=== PATIENT | female | born 1990 | race Caucasian/White ===

== ENCOUNTER → 2021-07-21 09:50 | Outpatient (BNVA) | payer OTHER, SELFPAY | PROVIDERS: Family Provider Family Medicine; Visit Provider Family Medicine | DX: Z20.822 Contact with and (suspected) exposure to COVID-19 (principal); Z20.828 Contact with and (suspected) exposure to other viral communicable diseases | CPT/HCPCS: 87426; 87635 ==

== ENCOUNTER 2021-10-31 19:54 | Emergency (ER) | payer OTHER, SELFPAY ==
[2021-10-31 20:01] VITALS: BP 132/84; PULSE 99; RESP 16; TEMP 36.6; O2SAT 99; BMI 32.9
--- NOTE | 2021-10-31 21:01 | ED_ITS ---
HPI - Abdominal Pain General: Chief Complaint: Abdominal Pain Stated Complaint: PT thinks gallbladder Time Seen by Provider: 10/31/21 20:13 History of Present Illness: 31-year-old female comes in today with complaints of epigastric discomfort going through to her back. Patient reports some gastric discomfort since Albino with some loose stools. Patient denies any vomiting. Patient reports a history of acidic stomach . Patient has had 3 pregnancies with 2 live births. Patient has had a tubal ligation. Patient had umbilical hernia repair. Patient reports no fever. Patient reports no difficulty urinating or any abnormal vaginal discharge. Patient is presently on her menstrual cycle. MD elicited complaint: abdominal pain Pertinent past history: none Pain Consistency: intermittent Location: Epigastric Severity: moderate Exacerbating factors: nothing Associated Symptoms: Reports chills, diarrhea and nausea; Denies fever(s) Review of Systems General: Reports: 10 or more systems reviewed and unremarkable except in HPI and below Const: Reports: chills and malaise; Denies: fever(s) GI: Reports: abdominal pain, nausea and diarrhea [facility] PFSH: Medical History (Updated 10/31/21 @ 22:54 by MARLYS Zhong) Pain, dental Tooth abscess Physical Exam Const: COMMON NORMALS: alert HENMT: MOUTH: Normal oral and palatal mucosa present THROAT: posterior oropharynx normal Neck/C-Spine: COMMON NORMALS: full ROM Resp: COMMON NORMALS: normal respiratory effort and clear to auscultation bilaterally AUSCULTATION: clear to auscultation bilaterally Cardio: COMMON NORMALS: regular rate and regular rhythm RATE: regular rate RHYTHM: regular rhythm GI: COMMON NORMALS: Soft to palpation AUSCULTATION: Yes normoactive bowel s ounds PALPATION: Yes Soft to palpation and Yes Tenderness to palpation pr esent (GI) Details: RUQ : COMMON NORMALS: Yes no CVA tenderness BLADDER/KIDNEY EXAM: Yes no CVA tenderness Back/Pelvis: COMMON NORMALS: no CVA tenderness Extremity: COMMON NORMALS: normal to inspection and no pedal edema Neuro: SENSORIUM/ORIENTATION: Yes alert Psych: COMMON NORMALS: cooperative Skin: COMMON NORMALS: no rashes or lesions noted GENERAL SKIN EXAM: no rashes or lesions noted Course Vital Signs: Vital signs: Vital Signs Temperature 97.9 F 10/31/21 20:01 Pulse Rate 90 10/31/21 21:26 Respiratory Rate 16 10/31/21 21:26 Blood Pressure 140/80 10/31/21 21:26 Pulse Oximetry 99 10/31/21 21:26 MDM - Abdominal Pain Medical Decision Making 31-year-old female comes in today with epigastric pain radiating to her back. On exam patient has abdominal tenderness in epigastric and right upper quadrant. Bowel sounds are present. Skin is warm and dry. Vital signs are normal. Differential diagnosis includes but not limited to cholecystitis, pancreatitis, gastritis. CBC CMP are unremarkable. Lipase was 1000. Urinalysis was clear. Concern for pancreatitis due to elevation of lipase. CT of the abdomen and pelvis indicated no significant abnormality in the pancreas or other abdominal structures. I believe patient probably has idiopathic pancreatitis recommended clear liquid diet and the use of hydrocodone and Zofran for nausea and pain control. Patient was strongly recommended to avoid rich foods and an increase diet as tolerated after pain is resolved. Patient should follow-up with primary care for further instruction. Patient reported understanding and agreed to isma mullins. Lab Data : 10/31/21 20:57 10/31/21 20:57 Labs/Radiology: Radiology Impressions Abdomen/Pelvis CT 10/31/21 21:36 IMPRESSION: 1. No cause for acute pain is identified. Pancreas is normal. 2. Fat containing umbilical hernia. COMMENTS: Consistent with the [employer]'s Incidental Findings Committee white paper (J Am Shiv Radiol 2018): Any incidental renal lesion less than 1 cm or classified as too small to characterize, or any incidental cystic renal lesion characterized as simple-appearing, is likely benign. No follow-up imaging is recommended for these lesions per consensus recommendations based on imaging criteria. Laboratory Results WBC 7.7 10^3/uL (4.0-10.0) 10/31/21 20:57 RBC 4.84 10^6/uL (4.1-5.3) 10/31/21 20:57 Hgb 13.7 g/dL (11.5-15.3) 10/31/21 20:57 Hct 42.6 % (37.0-47.0) 10/31/21 20:57 MCV 88.0 fl (81-99) 10/31/21 20:57 MCH 28.3 pg (28.0-34.0) 10/31/21 20:57 MCHC 32.2 g/dL (30.0-36.0) 10/31/21 20:57 RDW 13.7 % (12.1-15.1) 10/31/21 20:57 Plt Count 162 10^3/cmm (130-400) 10/31/21 20:57 MPV 11.8 fL (7.4-10.4) H 10/31/21 20:57 Neut % (Auto) 68.3 % 10/31/21 20:57 Lymph % (Auto) 21.0 % 10/31/21 20:57 [place] % (Auto) 8.7 % 10/31/21 20:57 Eos % (Auto) 1.3 % 10/31/21 20:57 Baso % (Auto) 0.4 % 10/31/21 20:57 Neut # (Auto) 5.26 10^3/uL (1.8-7.7) 10/31/21 20:57 Lymph # (Auto) 1.6 10^3/uL (0.8-4.8) 10/31/21 20:57 [place] # (Auto) 0.7 10^3/uL (0.2-0.9) 10/31/21 20:57 Eos # (Auto) 0.1 10^3/uL (0.0-0.8) 10/31/21 20:57 Baso # (Auto) 0.0 10^3/uL (0.0-0.1) 10/31/21 20:57 Nucleated RBC % (auto) 0 % 10/31/21 20:57 Nucleated RBCs # 0.0 /100WBC 10/31/21 20:57 Sodium 140 mmol/L (136-145) 10/31/21 20:57 Potassium 3.6 mmol/L (3.5-5.1) 10/31/21 20:57 Chloride 104 mmol/L (98-107) 10/31/21 20:57 Carbon Dioxide 23 mmol/L (22-29) 10/31/21 20:57 Anion Gap 16.6 (5-19) 10/31/21 20:57 BUN 10 mg/dL (6-20) 10/31/21 20:57 Creatinine 0.8 mg/dL (0.5-0.9) 10/31/21 20:57 GFR Calculation 82.6 mL/min (90-130) L 10/31/21 20:57 Glucose 108 mg/dL (65-115) 10/31/21 20:57 Calculated Osmolality 290 mOsm/kg (285-295) 10/31/21 20:57 Calcium 9.3 mg/dL (8.5-10.5) 10/31/21 20:57 Total Bilirubin 0.3 mg/dL (0.15-1.2) 10/31/21 20:57 AST 12 U/L (0-32) 10/31/21 20:57 ALT 18 U/L (0-33) 10/31/21 20:57 Alkaline Phosphatase 86 IU/L (35-105) 10/31/21 20:57 Total Protein 6.9 g/dL (6.6-8.7) 10/31/21 20:57 Albumin 4.0 g/dL (3.5-5.2) 10/31/21 20:57 Globulin 2.9 g/dL (1.3-4.6) 10/31/21 20:57 Lipase 1079 U/L (13-60) H 10/31/21 20:57 HCG, Qual Negative (Negative) 10/31/21 20:57 Urine Color Yellow (Yellow) 10/31/21 21:30 Urine Appearance Clear (CLEAR) 10/31/21 21:30 Urine pH 5 (5-7) 10/31/21 21:30 Ur Specific [place] 1.020 (1.005-1.030) 10/31/21 21:30 Urine Protein Neg (Negative) 10/31/21 21:30 Urine Glucose (UA) Norm (Normal) 10/31/21 21:30 Urine Ketones Negative (Negative) 10/31/21 21:30 Urine Blood Trace (Negative) H 10/31/21 21:30 Urine Nitrate Negative (Negative) 10/31/21 21:30 Urine Bilirubin Neg (Negative) 10/31/21 21:30 Urine Urobilinogen Norm mg/dL (Negative) 10/31/21 21:30 Ur Leukocyte Esterase Negative (Negative) 10/31/21 21:30 Urine RBC 0-4 /hpf (0-2) H 10/31/21 21:30 Urine WBC 0-4 /hpf (0-5) H 10/31/21 21:30 Ur Squamous Epith Cells 0-4 /hpf (0-5) H 10/31/21 21:30 Amorphous Sediment Not Reportable 10/31/21 21:30 Urine Bacteria Trace /hpf (NONE) 10/31/21 21:30 Urine Mucus Trace /hpf 10/31/21 21:30 Discharge Plan Discharge Patient Disposition: Home Clinical Impression: Pancreatitis Qualifiers: Chronicity: acute Pancreatitis type: idiopathic Acute pancreatitis complication: no infection or necrosis Qualified Code(s): K85.00 - Idiopathic acute pancreatitis without necrosis or infection Condition: Stable Prescriptions: New hydrocodone-acetaminophen 5-325 mg tablet 1 tab PO Q8H PRN (Reason: pain) Qty: 7 0RF ondansetron 4 mg tablet,disintegrating 4 mg PO Q8H PRN (Reason: nausea and vomiting) Qty: 7 0RF No Action amoxicillin 875 mg tablet 875 mg PO BID Qty: 20 1RF Discharge Orders: Discharge ED (Routine); Ordered 10/31/21 Ordered By: Luisito Ny Referrals: Ernesto Agudelo MD [Primary Care Provider] - Discharge Diet: Clear Liquid Discharge Activity: Increase activity as tolerated Patient Instructions: Pancreatitis (ED), Opioid Safety Activity Restrictions/Additional Instructions: Home and rest. Drink plenty of fluids. Use Zofran and hydrocodone for pain and nausea. You may also use acetaminophen or ibuprofen to help control pain. Follow-up with primary care in 3 days for recheck. Return to ER for worsening symptoms such as inability to hold fluids down, uncontrolled pain, or high fever greater than 100.3. Coding Level of Care Code ED Naturopathic Physician for Kathryn Fwd Exam Comprehensive
[2021-10-31 21:03] LABS: Basophils % 0.4 %; Eosinophils # 0.1 10^3/uL (0.0-0.8); Eosinophils % 1.3 %; Hematocrit 42.6 % (37.0-47.0); Hemoglobin 13.7 g/dL (11.5-15.3); Lymphocytes # 1.6 10^3/uL (0.8-4.8); Mean Corpuscular HGB Conc 32.2 g/dL (30.0-36.0); Mean Corpuscular Hemoglobin 28.3 pg (28.0-34.0); Mean Platelet Volume 11.8 fL (7.4-10.4); Monocytes # 0.7 10^3/uL (0.2-0.9); Monocytes % 8.7 %; Neutrophils # 5.26 10^3/uL (1.8-7.7); Neutrophils % 68.3 %; Nucleated Red Blood Cells % 0 %; Platelet Count 162 10^3/cmm (130-400); Red Blood Count 4.84 10^6/uL (4.1-5.3); Red Cell Distribution Width 13.7 % (12.1-15.1); White Blood Count 7.7 10^3/uL (4.0-10.0)
[2021-10-31 21:23] LABS: Alanine Aminotransferase 18 U/L (0-33); Alkaline Phosphatase 86 IU/L (35-105); Anion Gap 16.6 (5-19); Aspartate Amino Transferase 12 U/L (0-32); Blood Urea Nitrogen 10 mg/dL (6-20); Calcium 9.3 mg/dL (8.5-10.5); Carbon Dioxide 23 mmol/L (22-29); Chloride 104 mmol/L (98-107); Globulin 2.9 g/dL (1.3-4.6); Glomerular Filtration Rate 82.6 mL/min (90-130); Glucose 108 mg/dL (65-115); Osmolality Calculated 290 mOsm/kg (285-295); Potassium 3.6 mmol/L (3.5-5.1); Sodium 140 mmol/L (136-145); Total Bilirubin 0.3 mg/dL (0.15-1.2); Total Protein 6.9 g/dL (6.6-8.7)
[2021-10-31 21:26] VITALS: BP 140/80; PULSE 90; RESP 16; O2SAT 99
[2021-10-31 21:27] LABS: HCG, Serum Qual Negative (Negative)
[2021-10-31 21:33] LABS: Lipase 1079 U/L (13-60)
--- NOTE | 2021-10-31 21:36 | CTR_ITS ---
PROCEDURE INFORMATION: Exam: CT Abdomen And Pelvis With Contrast Exam date and time: 10/31/2021 9:36 PM Age: 31 years old Clinical indication: Abdominal pain; Patient HX: Epigastric pain/ elevated lipase; Additional info: Elvated lipase TECHNIQUE: Imaging protocol: Computed tomography of the abdomen and pelvis with contrast. Radiation optimization: All CT scans at this facility use at least one of these dose optimization techniques: automated exposure control; mA and/or kV adjustment per patient size (includes targeted exams where dose is matched to clinical indication); or iterative reconstruction. Contrast material: OMNI 300; Contrast volume: 95 ml; Contrast route: INTRAVENOUS (IV); COMPARISON: ES Gynecology Scope Images 02/18/2015 3:40 AM RADIATION DOSE METRICS: Total DLP (mGy-cm): 1743.62 FINDINGS: Lungs: The lung bases are clear. No effusion Liver: Normal. No mass. Gallbladder and bile ducts: No wall thickening, pericholecystic fluid or stones. Pancreas: Normal. No ductal dilation. Spleen: Normal. No splenomegaly. Adrenal glands: Normal. No mass. Kidneys and ureters: There is a subcentimeter low-attenuation lesion/lesions, of the left kidney which are too small to accurately characterize by CT. Stomach and bowel: Unremarkable. No obstruction. No mucosal thickening. Appendix: No evidence of appendicitis. Intraperitoneal space: Unremarkable. No free air. No significant fluid collection. Vasculature: Unremarkable. No abdominal aortic aneurysm. Lymph nodes: In multiple borderline enlarged mesenteric lymph nodes which are likely reactive in nature. Urinary bladder: Unremarkable as visualized. Reproductive: Unremarkable as visualized. Bones/joints: Unremarkable. No acute fracture. Soft tissues: Fat containing umbilical hernia. CT/CT abdomen pelvis w con* [id number] IMPRESSION: 1. No cause for acute pain is identified. Pancreas is normal. 2. Fat containing umbilical hernia. COMMENTS: Consistent with the [employer]'s Incidental Findings Committee white paper (J Am Shiv Radiol 2018): Any incidental renal lesion less than 1 cm or classified as too small to characterize, or any incidental cystic renal lesion characterized as simple-appearing, is likely benign. No follow-up imaging is recommended for these lesions per consensus recommendations based on imaging criteria.
[2021-10-31] MEDS: iohexol 300 mg/mL 100 mL Btl IV (21:50)
[2021-10-31 21:53] LABS: Add Urine Culture? No; Add Urine Microscopic? YES; Bacteria Urine TRACE /hpf; Bilirubin Urine Neg (Negative); Blood Urine Trace (Negative); Glucose Urine UA Norm (Normal); Ketones Urine Negative (Negative); Leukocyte Esterase Urine Negative (Negative); Mucus Urine TRACE /hpf; Nitrate Urine Negative (Negative); Protein Urine Neg (Negative); RBC Urine 0-4 /hpf (0-2); Squamous Epithelial Cell Urine 0-4 /hpf (0-5); Urine Appearance Clear (CLEAR); Urine Color Yellow (Yellow); Urobilinogen Urine Norm (Negative); WBC Urine 0-4 /hpf (0-5); pH Urine 5 (5-7)
[2021-10-31] MEDS: ondansetron 4 MG Tablet 8 MG PO (23:00)
[2021-10-31] MEDS: HYDROcodone-acetaminophen 5-325 mg Tablet 2 TAB PO (23:00)
[2021-10-31 23:17] LABS: Triglycerides 251 mg/dL (0-150)
== END 2021-10-31 23:04 | disposition home or self-care (01) ==
PROVIDERS: Emergency Provider Nurse Practitioner Family; PCP Family Medicine
DX: K85.00 Idiopathic acute pancreatitis without necrosis or infection (principal)
CPT/HCPCS: 36415; 74177; 80053; 81001; 83690; 84478; 84703; 85025; 99283; Q0162; Q9967

== ENCOUNTER → 2023-02-22 09:55 | Outpatient (BNVA) | payer OTHER, SELFPAY | PROVIDERS: PCP Family Medicine; Visit Provider Family Medicine | DX: R10.9 Unspecified abdominal pain (principal); K42.9 Umbilical hernia without obstruction or gangrene | CPT/HCPCS: 80053; 80061; 83690; 85025 ==

== ENCOUNTER 2023-04-19 09:05 | Day surgery (SDC) | payer OTHER, SELFPAY ==
[2023-04-18 09:42] VITALS: BMI 51.4
[2023-04-19] VITALS (19 sets, daily range): BP systolic 133–164; BP diastolic 70–107; PULSE 59–95; RESP 14–22; TEMP 36.2–36.6; O2SAT 90–97
--- NOTE | 2023-04-19 09:22 | W.PM.OPSUD ---
Surgery/Procedure H&P Update DATE OF PROCEDURE: April 19, 2023 DATE H&P PERFORMED: 03/20/23 H&P UPDATE INFORMATION: I have reviewed H&P completed within last 30 days, I have examined patient prior to procedure and No changes to prior documentation PLANNED PROCEDURE: Operation Date: 04/19/23 10:40 Proposed Procedures p lap repair of recurrent umbilical hernia w/ mesh [id number], K42.9(Not Applicable) - Shawn Bourgeois DO
[2023-04-19 09:43] LABS: OR HCG Qualitative Urine Negative (Negative)
[2023-04-19] MEDS: sodium chloride 0.9% 1,000 ML 30 ML IV (09:53)
--- NOTE | 2023-04-19 10:00 | ANES.PREANE2 ---
Pre-Anesthetic Assessment Height/Weight: Height 1.65 m Weight 140.16 kg Temp Pulse Resp BP Pulse Ox O2 Del Method 97.1 F L 84 16 133/82 97 Room Air 04/19/23 09:32 04/19/23 09:32 04/19/23 09:32 04/19/23 09:32 04/19/23 09:32 04/19/23 09:32 Operation Date: 04/19/23 10:40 Proposed Procedures p lap repair of recurrent umbilical hernia w/ mesh [id number], K42.9(Not Applicable) - Shawn Bourgeois DO Familial anesthetic complications: none Was Beta Diony taken within 24 hours: Yes Was Clonidine taken within 24 hours: N/A Last intake: Intake Last Liquid Date 04/19/23 Last Liquid Time 02:30 Last Solid Date 04/18/23 Last Solid Time 21:00 Social No alcohol and No tobacco (h/o smoking) Exam alert, oriented x 3, clear to auscultation bilaterally and regular rate & rhythm Airway Submandibular: within normal limits Cervical ROM: within normal limits Mallampati: Class II Dentition: full CV/HEM Arrythmia Metabolic Morbid Obesity Neuropsych Anxiety Anesthetic Plan ASA status: 3 Anesthesia: General Medications/Allergies Home Medications Medication Instructions Recorded Confirmed Last Taken Type mupirocin 2 % topical ointment 1 applic topical BID #22 grams 02/01/22 04/18/23 Unknown Rx escitalopram oxalate 20 mg tablet 20 mg PO DAILY #30 tabs 02/22/23 04/18/23 04/18/23 21:00 Rx (Lexapro) propranolol 10 mg tablet 10 mg PO BID #60 tabs 02/23/23 04/18/23 04/18/23 21:00 Rx fluconazole 150 mg tablet 150 mg PO Q3D 2 doses #2 tabs 04/13/23 04/18/23 Unknown Rx (Diflucan) Allergies Allergy/AdvReac Type Severity Reaction Status Date / Time metronidazole [From Flagyl] Allergy Unknown Verified 04/13/23 16:42 sumatriptan [From Imitrex] Allergy ALGY-Joint Verified 04/18/23 09:41 Pain Current Medications Generic Name Dose Route Start Last Admin Trade Name Freq PRN Reason Stop Dose Admin Sodium Chloride 1,000 mls @ 30 mls/hr 04/19/23 09:30 04/19/23 09:53 Sodium Chloride 0.9% IV 04/20/23 09:29 30 mls/hr .Q24H JENNIE Administration PFSH Anesthesia Medical History Pain, dental Tooth abscess Surgical History Hx of tubal ligation Hx of umbilical hernia repair Social History Smoking and tobacco status: never smoked Alcohol intake: current Alcohol intake frequency: holidays/special occasions only Marital status: Current occupational status: employed Female Reproductive History Date of last menstrual period: 02/05/23 Data Anesthesia Cardiac Studies: Holter Monitor 10/10/21
[2023-04-19] MEDS: ceFAZolin 2,000 MG in sodium chloride 0.9% (plus) 50 ML 100 MG IV (10:15)
[2023-04-19] MEDS: ceFAZolin 1,000 MG in sodium chloride 0.9% (plus) 50 ML 100 MG IV (10:30)
--- NOTE | 2023-04-19 11:02 | PM.OP ---
Operative Report Date of procedure: April 19, 2023 Pre-op diagnosis: Recurrent incisional hernia Post-op diagnosis: same Procedure done: Laparoscopic repair of recurrent incisional hernia with mesh Implants: 11 cm round Ventralight mesh Specimens removed/disposition: None Surgeon: Dr. Shawn Bourgeois DO Anesthesia: General Estimated blood loss (mL): 5 Complications: None apparent Brief History: This very pleasant 33-year-old female who presents my office with a recurrent incisional hernia at the umbilicus. Laparoscopic repair with mesh was indicated. The risk and benefits were explained and documented. Hernia was reducible and preoperatively measured 1.5 cm in diameter. Procedure: Patient was wheeled into the operative room and placed on the OR table in a supine position. Abdomen was inspected prepped and draped in usual sterile fashion. Time-out was performed and all present were in agreement. A 15 blade scalp was used to make a 5 millimeter incision left upper quadrant. A Veress needle was placed into the incision and intra-abdominal insufflation was brought to 15 millimeters of mercury. A 12 millimeter trocar was placed into the left lower quadrant. The energy but device was then used to cut out the hernia sac. The hernia defect measured 1.5 cm in diameter. An 11 cm ventral light mesh was placed into the abdomen and brought up through the umbilicus using an the Ulises-Antonietta. The mesh was then tacked in place in a double crown fashion. The skeleton of the mesh was removed via the left lower quadrant. The hernia sac was then removed from the abdomen via the left lower quadrant. The hernia sac was not sent to pathology.. The left lower quadrant port site was closed with an 0 Vicryl suture in a Ulises-Antonietta in a [id number] fashion. Incisions were closed with 4 O Vicryl in a subcuticular interrupted fashion. Skin glue was applied. A dressing that included cotton balls and a Tegaderm was placed over the umbilicus. Patient tolerated the procedure well.
[2023-04-19] MEDS: lidocaine-epi 2% 20 mL INJ 3 ML INJECTION (11:04)
[2023-04-19] MEDS: fentaNYL 50 mcg/mL INJ 2mL IVP ×2 (11:31→11:52)
[2023-04-19] MEDS: HYDROcodone-acetaminophen 10-325 mg Tablet 1 TAB PO (13:30)
--- NOTE | 2023-04-19 13:42 | ANE.PACU2 ---
Inpatient post-anesthesia follow up: Airway intact: Yes Vital signs: Temperature 97.6 F Pulse Rate 78 Respiratory Rate 16 Blood Pressure 150/80 Pulse Oximetry 95 Oxygen Delivery Me thod Room Air Oxygen Flow Rate 3 Fraction of Inspir ed Oxygen Hydration adequate: Yes Nausea and vomiting: No Pain level: 3 Mental status: Baseline
[2023-04-19] MEDS: ondansetron 2 mg/ML SDV 2 mL 4 MG IVP (13:55)
--- NOTE | 2023-04-19 13:59 | SUR.PHASEII ---
abdomen dressing and incision site intact.no bleeding medicated for nausea.
== END 2023-04-19 14:29 | disposition home or self-care (01) ==
PROVIDERS: Anesthesiology; PCP Family Medicine; Visit Provider Surgery
PROC: 0WQF4ZZ Repair Abdominal Wall, Percutaneous Endoscopic Approach (ICD-10-PCS; CPT 49613; principal; 2023-04-19 10:30)
DX: K43.2 Incisional hernia without obstruction or gangrene (principal); E66.01 Morbid (severe) obesity due to excess calories; Z68.43 Body mass index [BMI] 50.0-59.9, adult
CPT/HCPCS: 49613; 81025; 84703; C1781; J0131; J0330; J0690; J1100; J1200; J1885; J2250; J2405; J2704; J2710; J3010; J3490; J7030

== ENCOUNTER → 2023-04-27 16:15 | Outpatient (BNVA) | payer OTHER, SELFPAY | PROVIDERS: PCP Family Medicine; Visit Provider Family Medicine | DX: G89.18 Other acute postprocedural pain (principal) | CPT/HCPCS: 80048; 85025 ==

== ENCOUNTER → 2023-05-29 08:41 | Outpatient (BNVA) | payer OTHER, SELFPAY | PROVIDERS: PCP Family Medicine; Visit Provider Nurse Practitioner Family | DX: T81.89XA Other complications of procedures, not elsewhere classified, initial encounter (principal); X58.XXXA Exposure to other specified factors, initial encounter | CPT/HCPCS: 87070; 87176; 87205 ==

== ENCOUNTER → 2023-06-20 09:54 | Outpatient (BNVA) | payer OTHER, SELFPAY | PROVIDERS: PCP Family Medicine; Visit Provider Family Medicine | DX: R16.1 Splenomegaly, not elsewhere classified (principal) | CPT/HCPCS: 80053; 85025; 85651; 86140; 87806 ==

== ENCOUNTER 2023-07-31 08:45 | Outpatient (CLI) | payer OTHER, SELFPAY ==
--- NOTE | 2023-07-31 08:30 | US_ITS ---
WS: [id number] Limited abdomen ultrasound. HISTORY: Splenomegaly. COMPARISON: 10/31/2021 and 09/08/2008. Spleen is moderately enlarged and heterogeneous. Spleen extends over a length of 13.9 cm in length wh ich indicates an increase in size since the prior examination of 2008. There is a heterogeneous appea tien of the spleen with mild increased vascularity. Loss of the normal concave fatty hilum. The adjacent LEFT kidney is poorly visualized but does appear normal size. There is no adjacent fluid . IMPRESSION: 1. Moderately enlarged spleen measuring 13.9 cm in length. No discrete mass is identified but there i s mild heterogeneity within the spleen. Consider possibility of mononucleosis or additional inflammat ory/neoplastic changes. CT abdomen and pelvis with contrast may be of benefit. 2. No ascites identified in the LEFT upper quadrant.
== END 2023-07-31 08:46 | disposition home or self-care (01) ==
LOC: RAD 08:45
PROVIDERS: PCP Family Medicine; Visit Provider Family Medicine
DX: R16.1 Splenomegaly, not elsewhere classified (principal)
CPT/HCPCS: 76705

== ENCOUNTER → 2023-08-22 11:00 | Outpatient (BNVA) | payer OTHER, SELFPAY | PROVIDERS: PCP Family Medicine; Visit Provider Nurse Practitioner | DX: Z20.2 Contact with and (suspected) exposure to infections with a predominantly sexual mode of transmission (principal); N76.0 Acute vaginitis; B96.89 Other specified bacterial agents as the cause of diseases classified elsewhere | CPT/HCPCS: 87491; 87591 ==

== ENCOUNTER 2023-10-16 08:05 | Outpatient (CLI) | payer OTHER, SELFPAY ==
--- NOTE | 2023-10-16 08:00 | CT_ITS ---
WS: [id number] CT ABDOMEN WITH CONTRAST HISTORY: splenomegaly Contiguous single phase 5 mm axial imaging performed to the abdomen. Oral contrast has been provided. Coronal and sagittal reformats are submitted. All CT scans at [facility] use at least one of these dose optimization techniques: automated exposure control; mA and/or kV adjustment per patient size (includes targeted exams where dose is matched to clinical indication); or iterative reconstruct ion. IV CONTRAST: Omnipaque 350; 100 mL IV. Oral contrast: Yes. DLP: 1030.43 mGy.cm COMPARISON: CT 10/31/2021, ultrasound 07/31/2023 Lower thorax: Lung bases are clear. Heart is normal size. No hiatal hernia. Liver/biliary system: Hepatic steatosis. No mass. Liver mildly enlarged. No bile duct dilatation. The re is a central calcified granulomata. Gallbladder: Normal. No gallstones or wall thickening. No pericholecystic fluid. Pancreas: Normal size pancreas and pancreatic duct. No adjacent inflammation. Spleen: Spleen is mildly enlarged at 16.9 cm. Spleen was also enlarged on the prior ultrasound from and the ultrasound of 07/31/2023. Parenchyma is normal. There are a few varices noted in the LEFT upper quadrant extending to the spleen. Adrenal glands: Normal. Right kidney: 6 mm low-attenuation nodule in the RIGHT renal cortex is unchanged. Too small to charac terize. There are a few additional smaller hypodensities. No renal obstruction. Left kidney: Normal. Aorta: Normal. Lymphadenopathy: None. Free fluid: None. GI tract: Unremarkable. Abdominal wall: Unremarkable abdominal wall. No hernia. Visualized osseous structures: Unremarkable. IMPRESSION: 1. Continued splenomegaly, similar to prior studies dating back to 10/31/2021. Spleen measures 16.9 c m in length. There are few varices noted in the LEFT upper abdomen extending to the spleen. Consider early changes of portal venous hypertension. 2. Mild hepatomegaly. Liver was also markedly enlarged on the CT of 10/31/2021. 3. No ascites or adenopathy.
[2023-10-16] MEDS: iohexol 350 mg/mL 500 mL Btl (per mL) PO (08:12)
[2023-10-16] MEDS: iohexol 350 mg/mL 500 mL Btl (per mL) IV (08:33)
== END 2023-10-16 08:06 | disposition home or self-care (01) ==
LOC: RAD 08:05
PROVIDERS: PCP Family Medicine; Visit Provider Family Medicine
DX: R16.1 Splenomegaly, not elsewhere classified (principal); R16.0 Hepatomegaly, not elsewhere classified; I86.8 Varicose veins of other specified sites
CPT/HCPCS: 74160; Q9967

== ENCOUNTER → 2023-10-25 16:45 | Outpatient (BNVA) | payer OTHER, SELFPAY | PROVIDERS: PCP Family Medicine; Visit Provider Family Medicine | DX: R16.1 Splenomegaly, not elsewhere classified (principal) | CPT/HCPCS: 80053; 86140; 87798 ==

== ENCOUNTER → 2024-01-31 17:15 | Outpatient (BNVA) | payer OTHER, SELFPAY | PROVIDERS: PCP Family Medicine; Visit Provider Nurse Practitioner | DX: M79.672 Pain in left foot (principal) | CPT/HCPCS: 73630 ==

== ENCOUNTER → 2024-08-20 10:06 | Outpatient (BNVA) | payer SELFPAY | PROVIDERS: PCP Family Medicine; Visit Provider Nurse Practitioner Family | DX: Z02.83 Encounter for blood-alcohol and blood-drug test (principal) | CPT/HCPCS: 80306 ==

== ENCOUNTER 2024-09-11 15:41 | Outpatient (CLI) | payer MEDICAID, SELFPAY ==
--- NOTE | 2024-09-11 16:00 | USR_ITS ---
PROCEDURE INFORMATION: Exam: US Right Limited Joint or Other Non-Vascular Extremity Structure Exam date and time: 09/11/2024 3:49 PM Age: 34 years old Clinical indication: Mass or lump; Other: Foot; Additional info: Possible hematoma right lower extremity TECHNIQUE: Imaging protocol: US right limited joint or other nonvascular extremity structure. Real-time ultrasound with image documentation. Exam focused on the area of clinical interest. COMPARISON: CT abdomen pelvis w con* [id number] 10/31/2021 9:52 PM FINDINGS: Soft tissues: There is a heterogeneously hypoechoic irregular avascular subcutaneous nodule measuring 1.8 x 1.3 x 0.4 cm at the site of palpable abnormality in the foot. US/US soft tissue/extremity [id number] IMPRESSION: 1.8 cm irregular subdermal nodule at the site of palpable abnormality in the foot. Imaging features are nonspecific. Small hematoma is most likely. No drainable fluid collection.
== END 2024-09-11 15:42 | disposition home or self-care (01) ==
LOC: RAD 15:43
PROVIDERS: PCP Family Medicine; Visit Provider Nurse Practitioner Family
DX: S90.31XA Contusion of right foot, initial encounter (principal); X58.XXXA Exposure to other specified factors, initial encounter; R93.6 Abnormal findings on diagnostic imaging of limbs
CPT/HCPCS: 76882

== ENCOUNTER → 2024-10-31 09:10 | Outpatient (BNVA) | payer MEDICAID, SELFPAY | PROVIDERS: PCP Family Medicine; Visit Provider Family Medicine | DX: Z13.6 Encounter for screening for cardiovascular disorders (principal); Z02.9 Encounter for administrative examinations, unspecified | CPT/HCPCS: 80061; 82947; 83036; 86787 ==

== ENCOUNTER → 2025-02-24 12:04 | Outpatient (BNVA) | payer MEDICAID, SELFPAY | PROVIDERS: PCP Family Medicine; Visit Provider Family Medicine | DX: F32.A Depression, unspecified (principal); F41.9 Anxiety disorder, unspecified; E66.9 Obesity, unspecified; R60.9 Edema, unspecified | CPT/HCPCS: 80053; 80061; 83880; 84443; 85025 ==